=== PATIENT | male | born 1950 | race Caucasian/White ===

== ENCOUNTER 2017-10-26 03:27 | Emergency (ER) | payer OTHER ==
[~2017-10-26] VITALS: Ht 182.9 cm; Wt 104.3 kg
[~2017-10-26 03:27] MED LIST: CATAFLAM50 MG PO; NORVASC5 MG; TAMS0.4C; TENORMIN50 M1
== END 2017-10-26 17:01 | disposition home or self-care (01) ==
LOC: ER 03:27
DX: K52.9 Noninfective gastroenteritis and colitis, unspecified (principal)

== ENCOUNTER 2021-02-04 13:19 | Emergency (ER) | payer OTHER ==
[~2021-02-04] VITALS: Ht 185.4 cm; Wt 106.6 kg
[2021-02-04] MEDS ORDERED: COZAAR100 MG (13:24)
[2021-02-04] MEDS ORDERED: TENORMIN50 M1 (13:24)
[2021-02-04] MEDS ORDERED: SKELAXIN800 MG PO (18:17)
[2021-02-04] MEDS ORDERED: EC-NAPROXEN375 MG PO (18:17)
== END 2021-02-04 18:24 | disposition home or self-care (01) ==
LOC: ER 13:19
DX: R10.9 Unspecified abdominal pain (principal)

== ENCOUNTER 2021-02-06 09:13 | Outpatient (CLI) | payer OTHER | END 2021-02-06 15:00 | disposition home or self-care (01) | LOC: LAB 09:13 | DX: N21.8 Other lower urinary tract calculus (principal); N20.0 Calculus of kidney ==

== ENCOUNTER → 2021-02-06 | Outpatient (CLI) | payer OTHER ==
[~2021-02-06] MED LIST changes: +COZAAR100 MG; +EC-NAPROXEN375 MG PO; +SKELAXIN800 MG PO
== END | disposition home or self-care (01) ==
LOC: SONOGRAMA 09:02
DX: N21.0 Calculus in bladder (principal); N21.8 Other lower urinary tract calculus

== ENCOUNTER 2021-02-09 16:04 | Emergency (ER) | payer OTHER ==
[~2021-02-09] VITALS: Ht 182.9 cm; Wt 106.6 kg
== END 2021-02-09 19:46 | disposition home or self-care (01) ==
LOC: ER 16:04
DX: R42 Dizziness and giddiness (principal); R07.89 Other chest pain; Z11.52 Encounter for screening for COVID-19

== ENCOUNTER 2022-04-30 08:45 | Emergency (ER) | payer OTHER ==
[~2022-04-30] VITALS: Ht 182.9 cm; Wt 103.4 kg
[2022-04-30] MEDS ORDERED: NORVASC5 MG PO (09:12)
[2022-04-30] MEDS ORDERED: COZAAR50 MG PO (09:12)
[2022-04-30] MEDS ORDERED: XARELTO10 MG PO (09:12)
[2022-04-30] MEDS ORDERED: ZOCOR20 MG PO (09:13)
[2022-04-30] MEDS ORDERED: FARXIGA10 MG PO (09:13)
[2022-04-30] MEDS ORDERED: TRICOR48 MG PO (09:13)
[2022-04-30] MEDS ORDERED: LIPITOR40 MG PO (09:14)
[2022-04-30] MEDS ORDERED: LASIX20 MG PO (09:14)
== END 2022-04-30 16:11 | disposition home or self-care (01) ==
LOC: ER 08:45
DX: K52.9 Noninfective gastroenteritis and colitis, unspecified (principal); I10 Essential (primary) hypertension; Z20.822 Contact with and (suspected) exposure to COVID-19

== ENCOUNTER → 2023-10-16 | Emergency (ER) | payer OTHER ==
[~2023-10-16] VITALS: Ht 167.6 cm; Wt 99.8 kg
[~2023-10-16] MED LIST changes: +COZAAR50 MG PO; +FARXIGA10 MG PO; +LASIX20 MG PO; +LIPITOR40 MG PO; +NORVASC5 MG PO; +TOPROL XL50 MG PO; +TRICOR48 MG PO; +XARELTO10 MG PO; +ZOCOR20 MG PO
[2023-10-16 14:07] LABS: HEMATOCRIT 46.4 % (39.0-48.0); HEMOGLOBIN 16.2 g/dL (13-16.00); MEAN CELL VOLUME 90.8 fL (80.0-100.00); MEAN CORPUSCULAR HEMOGLOBIN 31.7 pg (27.00-32.0); MEAN CORPUSCULAR HGB CONC 34.9 g/dl (32.0-36.0); PLATELET COUNT 213 K/uL (150-450); RED BLOOD COUNT 5.11 M/uL (4.00-6.00); RED CELL DISTRIBUTION WIDTH 13.7 % (11.5-14.5)
[2023-10-16 14:32] LABS: CALCIUM 9.4 mg/dL (8.5-10.1); CREATININE SERUM 0.97 mg/dL (0.70-1.30); GFR 76.29; POTASSIUM 3.95 mEq/L (3.5-5.1)
== END | disposition home or self-care (01) ==
LOC: ER 12:02
PROVIDERS: General Practice
DX: R51.9 Headache, unspecified (principal); F43.9 Reaction to severe stress, unspecified; I10 Essential (primary) hypertension; Z20.822 Contact with and (suspected) exposure to COVID-19